=== PATIENT | male | born 1990 | race Two or more races ===

== ENCOUNTER 2020-11-03 17:49 | Emergency (ER) | payer MEDICAID, SELFPAY ==
[~2020-11-03] VITALS: Ht 170.2 cm; Wt 84.1 kg
--- NOTE | 2020-11-03 20:16 | NUR ---
pt came into ed this evening due to right ear pain, denies drainage, pt states he had this pain for 4 days and then the pain went away for a few days but came back worse today. pt denies any known foreign bodies. reports slightly diminished hearing on that side. pt sitting on ENT chair, nad, appears comfortable, call light on lap, wctm.
[2020-11-03] MEDS ORDERED: HYDROcodone/APAP 5/325 TABLET PO ONE (21:00)
[2020-11-03] MEDS ORDERED: HYDROcodone/APAP 5/325 TABLET ONE (21:15)
[2020-11-03 21:17] VITALS: BP 113/77
--- NOTE | 2020-11-03 21:18 | NUR ---
Patient is resting comfortably on chair, call light on lap, medicated per jun, nad, states he has a friend to pick him up. awaiting dispo Vital Signs within normal limits. WCTM.
--- NOTE | 2020-11-03 21:29 | NUR ---
Patient given discharge instructions and they have confirmed that they understand the instructions. Patient ambulatory with steady gait. NAD, all questions answered appropriately, denies additional needs at this time. No personal belongings left in room after discharge.
== END 2020-11-03 21:30 | disposition home or self-care (01) ==
LOC: ED 21:24
DX: H65.01 Acute serous otitis media, right ear (principal)
CPT/HCPCS: 99283